=== PATIENT | female | born 1985 | race Caucasian/White ===

== ENCOUNTER 2021-09-08 17:40 | Emergency (ER) | payer OTHER, SELFPAY ==
[2021-09-08 17:42] VITALS: BP 174/96; PULSE 85; RESP 18; TEMP 37.2; O2SAT 99
--- NOTE | 2021-09-08 17:53 | ED.GENADUL_ITS ---
Discharge Plan Disposition Patient Disposition: HOME Condition: Stable Discharge Details Clinical Impression: Right shoulder strain Primary Care Provider: Unknown,Unknown ED Provider: Sandhya Baird Home Meds and New Rx's Prescriptions: New methocarbamol 500 mg tablet 500 mg PO Q6H PRN (Reason: muscle spasm) Qty: 14 RF: 0 prednisone 20 mg tablet See Rx Instructions .ROUTE .COMPLEX Qty: 12 RF: 0 Continued multivitamin Tablet 1 tab PO DAILY RF: 0 acetaminophen 500 mg Tablet 1,000 mg PO Q6H PRNRF: 0 ibuprofen 200 mg Tablet 800 mg PO Q6H PRNRF: 0 Discharge Instructions Instructions: Muscle Strain (ED), Shoulder Sprain (ED) Additional Instructions: Rest, ice, and elevate the affected area as much as possible. Alternate tylenol and motrin as needed and directed for pain. Prescriptions for steroids and muscle relaxers have been sent electronically to your pharmacy. You are being sent home with a muscle relaxer to take this evening when you return home. Do not operate machinery or drive a vehicle while taking this medication as it can make you drowsy. Follow-up with your primary care doctor in 1 week as needed for re-evaluation and for referral to physical therapy or orthopedics if your symptoms do not improve or worsen. Return to the emergency department with any worsening or new concerning symptoms. Referrals: Hector Jackson MD [ [facility] STAFF PHYSICIAN] - Discharge Data Discharge Date/Time-TO BE ENTERED AT DEPARTURE: 09/08/21 20:06 Discharge Physician: Sandhya Baird Medical Decision Making 36-year-old female presents with right shoulder pain since a fall on ice onto outstretched right arm 3 days ago. Pain radiating to her right clavicle, right side of neck down the right upper arm. No paresthesias or weakness. Patient appears uncomfortable but nontoxic. She has tenderness to palpation of her right anterior shoulder and overlying right trapezius. She has reproducible pain with movement at her right shoulder, most specifically flexion, abduction, internal and external rotation. She also has reproducible pain with rotation and side bending of her head. No focal deficits. She has neurovascular intact. No deformity, evidence of trauma, rash or cellulitis. Discussed with patient that her symptoms appear most likely can consistent with muscle strain versus sprain now developing into spasm. Feel she will most benefit from a course of muscle relaxers and steroids as she has had no relief with several days of NSAIDs and Tylenol. Patient did drive herself here so we will hold on muscle relaxers for home. Urine test negative. Patient referred for x-ray which is negative. Prescriptions for steroids and muscle relaxers sent electronically to her pharmacy. Advised to follow up with the primary care doctor for re-evaluation. Usual and customary return precautions given prior to discharge. Medical Records Medical records reviewed: Yes I reviewed the patient's medical records. Imaging Data Radiologic Study: Radiologist's impression: XR Right Shoulder Exam date and time: 09/08/2021 6:16 PM Age: 36 years old Clinical indication: Other: Fall TECHNIQUE: Imaging protocol: XR Right shoulder. Views: 2 or more views. COMPARISON: No relevant prior studies available. FINDINGS: Bones/joints: Negative for fracture or dislocation. Normal acromioclavicular alignment. Acromial humeral space maintained. No significant glenohumeral narrowing. Soft tissues: Negative for soft tissue air. No foreign bodies observed. Visualized lung is clear. IMPRESSION: No acute osseous abnormality. HPI General Mode of arrival: ambulatory . Date/Time Provider Initiated Documentation: 09/08/21 17:51 . Limitations to Documentation: no limitations . Information obtained by: patient . HPI Narrative: Patient is a 36-year-old female who presents with right shoulder pain after slip and fall on ice onto an outstretched right arm and landing on her bottom 3 days ago. Patient states she is unsure if she hit her right shoulder but she does not think there was any direct blunt injury to her shoulder. She states the pain is radiating from her right shoulder into her right clavicle, right lateral neck and into her right upper arm extending down to her elbow. She thinks she mainly fell on her outstretched right arm to brace herself during the fall. She denies any pain in her back or buttocks. She denies head injury. She states she has been taking ibuprofen and Tylenol for pain without significant relief. Last dose of 800 mg ibuprofen and Tylenol 90 minutes ago. She denies any numbness or weakness in her right arm. Related Data Home Medications Medication Instructions Recorded Confirmed acetaminophen 1,000 mg PO Q6H PRN 09/08/21 09/08/21 ibuprofen 800 mg PO Q6H PRN 09/08/21 09/08/21 methocarbamol 500 mg PO Q6H PRN #14 tab 09/08/21 multivitamin 1 tab PO DAILY 09/08/21 09/08/21 prednisone See Rx Instructions .ROUTE 09/08/21 .COMPLEX #12 tab Previous Rx's Medication Instructions Recorded methocarbamol 500 mg PO Q6H PRN #14 tab 09/08/21 prednisone See Rx Instructions .ROUTE 09/08/21 .COMPLEX #12 tab Allergies Allergy/AdvReac Type Severity Reaction Status Date / Time No Known Allergies Allergy Unverified 09/08/21 17:50 General Stated Complaint: Orthopedic DRE: 3 Review of Systems All systems reviewed & are unremarkable except as noted in HPI and below Constitutional Constitutional: Reports as per HPI, Denies chills and Denies fever(s) Eyes Eyes: Denies blurry vision ENT Ears, Nose, Mouth, and Throat: Denies dizziness, Denies sore throat and Denies throat swelling Cardiovascular Cardiovascular: Denies chest pain and Denies dyspnea Respiratory Respiratory: Denies cough and Denies dyspnea Gastrointestinal Gastrointestinal: Denies abdominal pain, Denies diarrhea and Denies vomiting Genitourinary Genitourinary: Denies hematuria and Denies dysuria Musculoskeletal Musculoskeletal: Denies back pain and Denies numbness Integumentary/Breasts Skin/Breast: Denies lesions and Denies rash Neurologic Neurologic: Denies dizziness, Denies localized weakness and Denies numbness Allergic/Immunologic Allergic/Immunologic: Denies throat swelling PFSH All Active Problems (Updated 09/08/21 @ 19:25 by Sandhya Baird DO) Right shoulder strain (Acute) Medical History (Updated 09/08/21 @ 19:25 by Sandhya Baird DO) No significant past medical history Surgical History (Updated 09/08/21 @ 18:30 by Sandhya Baird DO) History of appendectomy History of foot surgery History of surgery on wrist Hx of cholecystectomy Social History Smoking/Tobacco Use Status: Never Smoking risk assessment performed?: Yes Alcohol Intake: current Alcohol Intake frequency: holidays/special occasions only Alcohol type: wine Drug use: Rarely Substance use type: marijuana Do you feel safe at home: Yes Do you feel safe in your relationship?: Yes Exam Const General: cooperative, healthy appearing and no acute distress HENMT Head: normal to inspection Face and sinus: normal facial exam Eyes General: appearance normal, both eyes and all related structures EOM: EOM intact bilaterally Neck Neck: normal visual inspection and No submandibular swelling Lymphatic: no lymphadenopathy noted Chest Chest: normal inspection of the chest and no tenderness Resp Effort & Inspection: normal respiratory effort and able to speak in complete sentences Auscultation: clear to auscultation bilaterally Cardio Rate: regular rate Rhythm: regular rhythm GI Inspection: normal to inspection Palpation: soft, not firm, not rigid and nontender Auscultation: normal bowel sounds Skin General skin exam: no rashes or lesions noted Neuro General: patient alert, patient awake and patient oriented x3 Cognition: normal cognition Speech: speech normal Motor: muscle tone normal throughout Sensory Exam: no sensory deficits noted Extrem General: normal to inspection, capillary refill normal, no calf tenderness bilaterally and no edema Shoulder/upper arm images: 1. Tenderness to palpation of R anterior shoulder. Pain in R anterior shoulder with range of motion, most specifically flexion, abduction and internal and external rotation. 2. Tenderness overlying R trapezius muscle. Other: No tenderness to palpation overlying right clavicle, right upper arm, right elbow, right forearm, right wrist or hand. Pain in right anterior shoulder/trapezius also reproduced with right and left head rotation and side bending of head to right. Right radial and ulnar pulses intact. Normal right hand [employer]. Muscle strength normal right biceps and triceps. Psych Appearance: grossly normal Mental Status: mental status grossly normal Speech and Movement: speech and movement normal Affect: normal affect Course Vital Signs Vital signs: Vital Signs Temperature 99.0 F 09/08/21 17:42 Pulse 85 09/08/21 17:42 Respiratory Rate 18 09/08/21 17:42 Blood Pressure 174/96 H 09/08/21 17:42 Pulse Oximetry 99 09/08/21 17:42 Temperature 99.0 F 09/08/21 17:42 Temperature Source Temporal Artery Scan 09/08/21 17:42 Pulse 85 09/08/21 17:42 Respiratory Rate 18 09/08/21 17:42 Respiratory Effort Non-Labored 09/08/21 17:47 Blood Pressure 174/96 H 09/08/21 17:42 Blood Pressure Position Sitting 09/08/21 17:42 Pulse Oximetry 99 09/08/21 17:42 Oxygen Delivery Method Room Air 09/08/21 17:42 Oxygen Flow Rate 0 12/23/21 17:42 Pain Level 8 09/08/21 17:42
--- NOTE | 2021-09-08 18:00 | DI.RAD_ITS ---
Exam(s) XR SHOULDER RT COMPLETE 2+V EXAM: XR SHOULDER RT COMPLETE 2+V CLINICAL HISTORY: fall onto outstretched R arm, pain R shoulder. TECHNIQUE: 2D digital imaging was performed. COMPARISON: No exams were available for comparison FINDINGS: No evidence of fracture or dislocation or abnormal soft tissue calcifications. No degenerative prieto es evident in the glenohumeral and AC joints. Bone density is normal. No osseous lesions. IMPRESSION: No significant radiograph findings. DATA REPOSITORY: RADIATION DOSE DELIVERED:
--- NOTE | 2021-09-08 19:18 | DI.VRAD_ITS ---
PROCEDURE INFORMATION: Exam: XR Right Shoulder Exam date and time: 09/08/2021 6:16 PM Age: 36 years old Clinical indication: Other: Fall TECHNIQUE: Imaging protocol: XR Right shoulder. Views: 2 or more views. COMPARISON: No relevant prior studies available. FINDINGS: Bones/joints: Negative for fracture or dislocation. Normal acromioclavicular alignment. Acromial humeral space maintained. No significant glenohumeral narrowing. Soft tissues: Negative for soft tissue air. No foreign bodies observed. Visualized lung is clear. IMPRESSION: No acute osseous abnormality. Dictated and Authenticated by: Arsalan Ugalde MD. Ordering:CHANTEL Arthur MD
[2021-09-08] MEDS: diazePAM 5 MG TAB 10 MG PO (19:58)
[2021-09-08] MEDS: predniSONE 20 MG TAB 60 MG PO ×2 (19:58)
== END 2021-09-08 20:06 | disposition home or self-care (01) ==
PROVIDERS: Emergency Provider Physician Assistant
DX: S46.811A Strain of other muscles, fascia and tendons at shoulder and upper arm level, right arm, initial encounter (principal); W00.0XXA Fall on same level due to ice and snow, initial encounter
CPT/HCPCS: 81025; 99283; 73030; J7512